=== PATIENT | male | born 1990 | race Caucasian/White ===

== ENCOUNTER 2019-01-07 11:11 | Emergency (ER) | payer OTHER ==
--- NOTE | 2019-01-07 12:05 | ED ---
Upper Extremity Pain - HPI Summary HPI Summary: This patient is a 28 year old M presenting to ED with a chief complaint of upper back/right shoulder pain that radiates from the neck through the right shoulder down the right arm since last week. Patient woke up a week ago with the pain. He is a student in a computer lab. He is worried that he slept weirdly on his back, but the pain has only been getting worse since a week ago, spreading down the right arm. Patient describes the pain as strangulation of the right shoulder. He reports that the top half of his right hand and the right fingers feel numb. He states that the symptoms are only on the right side and that his left shoulder and upper extremity feel normal. He is right-handed. Patient has attempted to treat his pain with aspirin and massage, but it has not helped. Patient reports he is unable to sleep because of the pain. Patient also reports that he ate a breakfast sandwich and took Ibuprofen 600mg this morning but then vomited it up. Denies abdominal pain or additional episodes of vomiting. The patient rates the pain 9/10 in severity. Symptoms aggravated by bending the right arm. Symptoms alleviated by nothing. - History of Current Complaint Chief Complaint: EDExtremityUpper Stated Complaint: RIGHT ARM NUMBNESS PER PT Time Seen by Provider: 01/07/19 11:45 Hx Obtained From: Patient Onset/Duration: Started Weeks Ago - 1 week, Atraumatic, Still Present, Worse Since Timing: Constant, Lasting Weeks - 1 week Severity Initially: Severe Severity Currently: Severe Pain Location: Shoulder - Right, Arm - Right, Hand - Right, Other: - Right neck/ upper back Aggravating Factor(s): Other - Bending the right arm Alleviating Factor(s): Nothing Associated Signs & Symptoms: Positive: Numbness/Tingling - Of the right hand, Vomiting Related History: Dominant Hand Right - Allergies/Home Medications Allergies/Adverse Reactions: Allergies Allergy/AdvReac Type Severity Reaction Status Date / Time No Known Allergies Allergy Verified 01/07/19 11:15 Home Medications: Home Medications Calcium Carbonate [Calcium] 500 mg PO DAILY 01/07/19 [History Confirmed 01/07/19 ] Dextroamphetamine/Amphetamine [Adderall 20 mg Tablet] 0.5 tab PO QPM 01/07/19 [ History Confirmed 01/07/19] Dextroamphetamine/Amphetamine [Adderall 20 mg Tablet] 1 tab PO QAM 01/07/19 [ History Confirmed 01/07/19] Ferrous Gluconate [Iron 27] 240 mg PO DAILY 01/07/19 [History Confirmed 01/07/19 ] Multivitamins/Minerals TAB* [Thera M Plus TAB*] 1 tab PO DAILY 01/07/19 [ History Confirmed 01/07/19] Zinc Sulfate CAP* [Zinc-220 CAP*] 220 mg PO DAILY 01/07/19 [History Confirmed ] PMH/Surg Hx/FS Hx/Imm Hx Endocrine/Hematology History: Denies: Hx Diabetes Cardiovascular History: Reports: Hx Hypertension Sensory History: Denies: Hx Legally Blind, Hx Deafness Opthamlomology History: Denies: Hx Legally Blind EENT History: Denies: Hx Deafness Psychiatric History: Reports: Hx Attention Deficit Hyperactivity Disorder - Surgical History Surgery Procedure, Year, and Place: [facility], Spring 2018 Infectious Disease History: No Infectious Disease History: Denies: Traveled Outside the [place] in Last 30 Days - Family History Known Family History: Positive: Hypertension Negative: Diabetes, Respiratory Disease - Social History Alcohol Use: Occasionally Hx Substance Use: No Substance Use Type: Reports: None Hx Tobacco Use: Yes Smoking Status (MU): Former Smoker Review of Systems Positive: Vomiting - x1. Negative: Abdominal Pain Musculoskeletal: Other - Right neck/shoulder/upper back/upper extremity pain Positive: Numbness - Right hand All Other Systems Reviewed And Are Negative: Yes Physical Exam - Summary Physical Exam Summary: Constitutional: Well-developed, Well-nourished, Alert. (-) Distressed Skin: Warm, Dry HENT: Normocephalic; Atraumatic Eyes: Conjunctiva normal Neck: Musculoskeletal ROM normal neck. (-) JVD, (-) Stridor, (-) Nuchal rigidity Cardio: Rhythm regular, rate normal, Heart sounds normal; Intact distal pulses; Radial pulses are 2+ and symmetric. (-) Murmur Pulmonary/Chest wall: Effort normal. (-) Respiratory distress, (-) Wheezes, (-) Rales Abd: Soft, (-) tenderness, (-) Distension, (-) Guarding, (-) Rebound Musculoskeletal: Tenderness of the midine and R paraspinal lower cervical and upper thoracic spine and right trapezius. Pain with range of motion of the right shoulder, subjective circumferential parasthesias of the distal hand, right hand is slightly cool Lymph: (-) Cervical adenopathy Neuro: Alert, Oriented x3 Psych: Mood and affect Normal Triage Information Reviewed: Yes Vital Signs On Initial Exam: Initial Vitals Temp Pulse Resp BP Pulse Ox 96.7 F 84 17 183/115 100 01/07/19 11:12 01/07/19 11:12 01/07/19 11:12 01/07/19 11:12 01/07/19 11:12 Vital Signs Reviewed: Yes Procedures - Sedation Patient Received Moderate/Deep Sedation with Procedure: No Diagnostics - Vital Signs Vital Signs Temp Pulse Resp BP Pulse Ox 01/07/19 11:12 96.7 F 84 17 183/115 100 - Laboratory Lab Statement: Any lab studies that have been ordered have been reviewed, and results considered in the medical decision making process. - Radiology T-spine XR Radiology Interpretation Completed By: Radiologist Summary of Radiographic Findings: No fracture of the thoracic spine is noted. Dr. Mcarthur has reviewed this radiology report. C-spine XR Radiology Interpretation Completed By: Radiologist Summary of Radiographic Findings: Straightening of the normal lordosis. No fracture is noted. Dr. Mcarthur has reviewed this radiology report. CXR Radiology Interpretation Completed By: Radiologist Summary of Radiographic Findings: No active cardiopulmonary disease is noted. Dr. Mcarthur has reviewed this radiology report. - Ultrasound Doppler Study US Ultrasound Interpretation Completed By: Radiologist Summary of Ultrasound Findings: 1. No evidence of claudication or significant arterial disease by vascular ultrasound standards. 2. There is a clinically significant reduction and volume pulse recording magnitude measured at the left upper arm relative to the right. Please correlate to signs or symptoms of left upper extremity arterial insufficiency. If clinically warranted, superior characterization can be made with CTA. Dr. Mcarthur has reviewed this radiology report. Re-Evaluation - Re-Evaluation First Eval Re-Evaluation Time: 13:45 Comment: Discussed results with patient. Patient agrees to get CTA for further study if necessary. Patient asking for food, gave sandwich. Second Eval Re-Evaluation Time: 13:52 Comment: Discussed Dr. Zepeda's recommendations with patient regarding BP check. Measured bilateral BP. Left arm: 163/104. Right arm: 153/107. Third Eval Re-Evaluation Time: 14:18 Comment: Patient reports feeling better. Discussed results and plan with patient. Patient will be discharged home with dx of right shoulder pain. Patient understands and agrees with this plan. Course/Dx - Course Course Of Treatment: 28 y/o male w R trapezius, arm and hand pain. - PE w tenderness to trapezius area, pain w shoulder ROM, slightly cool hand, +2 radial pulse. - +mild CT and parspinal CT tenderness w radiating pain to arm, check XR. - concern for thoracic outlet, check US. - also consider: nerve impingement, trapezius strain, tendinitis of shoulder/AC joint. - no infectious symptoms. No objective weakness. No dermatomal sensory deficits. - Diagnoses Provider Diagnoses: Right shoulder pain - Physician Notifications Discussed Care of Patient With: Dawood Zepeda Time Discussed With Above Provider: 13:50 Instructed by Provider To: Other - Discussed ultrasound reading with Dr. Zepeda , radiologist, who recommends CTA can be performed as an out-patient if having persistent symptoms and to measure BP on both arms (and if >20 difference, consider additional imaging). Discharge ED - Sign-Out/Discharge Documenting (check all that apply): Patient Departure - Discharge - Discharge Plan Condition: Stable Disposition: HOME Prescriptions: Cyclobenzaprine TAB* [Flexeril 10 MG TAB*] 10 mg PO TID PRN 4 Days #12 tab PRN Reason: Pain - Moderate Ibuprofen TAB* [Motrin TAB* 800 MG] 800 mg PO Q6H 10 Days #30 tab oxyCODONE/Acetamin 5/325 MG* [Percocet 5/325 TAB*] 1 tab PO Q6H PRN 1 Days #4 tab MDD 4 PRN Reason: Pain Patient Education Materials: Lidocaine Patch (On the skin), Shoulder Pain (ED) Referrals: [facility] [Outside] Additional Instructions: You were seen in the emergency department for R shoulder and back pain. Your x- rays did not show any acute fractures or malaise. Your ultrasound showed possible slightly decreased flow in the left arm, which we discussed with radiologist, who thinks this may be a variant of a normal exam. Please follow up with your primary care doctor in next 2-3 days and return to emergency department for worsening pain, weakness of the arm, or concerning symptoms. It was a pleasure taking care of you today. Please do not take flexeril or percocet and drive. Take motrin 800 mg every 6-8 hours. - Billing Disposition and Condition Condition: STABLE Disposition: Home - Attestation Statements Document Initiated by Nunuibchanell: Yes Documenting Scribe: Dru Cristina Provider For Whom [place] is Documenting (Include Credential): Ines Mcarthur MD Scribe Attestation: IDru, scribed for Ines Mcarthur MD on 01/07/19 at 1426. Scribe Documentation Reviewed: Yes Provider Attestation: The documentation as recorded by the scribeDru accurately reflects the service I personally performed and the decisions made by me, Ines Mcarthur MD Status of Scribe Document: Viewed
[2019-01-07] MEDS ORDERED: Ketorolac INJ* 30 MG/ML 1 ML VIAL IM ONE (12:06)
[2019-01-07] MEDS ORDERED: Diazepam TAB(*) 5 MG PO ONE (12:06)
[2019-01-07 14:40] VITALS: BP 146/97
[2019-01-07 14:41] LABS: HIV 4th Generation Nonreactive (Nonreactive)
== END 2019-01-07 15:01 | disposition home or self-care (01) ==
LOC: ED 11:11
DX: M25.511 Pain in right shoulder (principal); I10 Essential (primary) hypertension; F90.9 Attention-deficit hyperactivity disorder, unspecified type; Z87.891 Personal history of nicotine dependence; Z79.899 Other long term (current) drug therapy
CPT/HCPCS: 36415; 71046; 72040; 72070; 87389; 93923; 96372; 99282; A9270-GY; J1885